=== PATIENT | female | born 1985 | race African-American/Black ===

== ENCOUNTER 2018-08-06 10:29 | Emergency (ER) | payer MEDICAID ==
[~2018-08-06] VITALS: Ht 172.7 cm; Wt 112.0 kg
[2018-08-06 11:45] LABS: BASOPHILS % 0.9 % (0.0-2.0); HEMOGLOBIN. 12.8 g/dL (12.0-16.0); LYMPHOCYTES % 37.7 % (20.0-50.0); MEAN CORPUSCULAR HEMOGLOBIN 30.4 pg (28.0-32.0); MEAN PLATELET VOLUME 8.5 fl (7.4-10.4); MONOCYTES % 7.9 % (2.0-8.0); NEUTROPHILS % 52.5 % (40.0-76.0); PLATELET 285 x1000/uL (130-400); RED BLOOD CELL COUNT 4.23 mill/uL (4.2-5.4); RED CELL DISTRIBUTION WIDTH 14.5 % (11.6-14.6)
[2018-08-06 11:56] LABS: CHLORIDE 107 mEq/L (98-107)
[2018-08-06] MEDS ORDERED: SODIUM CHLORIDE 0.9% 1,000 ML IV ONE (12:00)
[2018-08-06 12:06] VITALS: BP 117/74
[2018-08-06 12:19] LABS: CLARITY URINE CLEAR (CLEAR); COLOR URINE DARK YELLOW (YELLOW); KETONES URINE TRACE (NEGATIVE); LEUKOCYTE ESTERASE URINE NEGATIVE (NEGATIVE); NITRITE URINE NEGATIVE (NEGATIVE); OCCULT BLOOD URINE NEGATIVE (NEGATIVE); PH URINE 5.5 (4.5-8.0); PROTEIN URINE NEGATIVE (NEGATIVE); SPECIFIC GRAVITY URINE 1.035 (1.005-1.030); UROBILINOGEN URINE 0.2 E.U./dL (0.2-1.0)
[2018-08-06] MEDS: KETOROLAC 15MG/ML VIAL IV NR (13:19)
[2018-08-06] MEDS ORDERED: KETOROLAC 15MG/ML VIAL IV ONE (13:30)
[2018-08-06] MEDS ORDERED: ACETAMINOPHEN 500MG TABLET PO ONE (13:30)
== END 2018-08-06 15:15 | disposition home or self-care (01) ==
LOC: ER 10:29
DX: N92.0 Excessive and frequent menstruation with regular cycle (principal)
CPT/HCPCS: 36415; 76830; 76856; 80048; 81003; 81025; 85025; 96361; 96374; 99284; J1885; Z7610

== ENCOUNTER 2025-04-12 19:58 | Emergency (ER) | payer MEDICAID ==
[~2025-04-12] VITALS: Ht 172.7 cm; Wt 114.2 kg
[2025-04-12 20:05] VITALS: O2SAT 100
[2025-04-12 20:11] VITALS: BP 147/91; PULSE 57; RESP 18; TEMP 36.9; O2SAT 100
== END 2025-04-12 20:52 | disposition left against medical advice (07) ==
LOC: ER 19:58
DX: R10.9 Unspecified abdominal pain (principal); R11.10 Vomiting, unspecified; J45.909 Unspecified asthma, uncomplicated
CPT/HCPCS: 99281